=== PATIENT | male | born 1990 | race Hispanic/Latino ===

== ENCOUNTER 2017-12-19 10:57 | Emergency (ER) | payer BC, SELFPAY ==
[2017-12-19] MEDS ORDERED: TETANUS & DIPHTHERIA TOX,ADULT 0.5 ML VIAL ONE (11:17)
[2017-12-19] MEDS ORDERED: MORPHINE 4 MG/ML SYR ONE (11:17)
[2017-12-19] MEDS ORDERED: ONDANSETRON 4 MG (ODT) TAB ONE (11:17)
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
[2017-12-19] MEDS ORDERED: LIDOCAINE 1% W/EPI 1:100,000 MDV 50 ML VIAL ONE (12:05)
[2017-12-19] MEDS ORDERED: DERMABOND SKIN ADHESIVE TOP ONE (12:42)
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
== END 2017-12-19 13:16 | disposition home or self-care (01) ==
LOC: ER 10:57
PROC: 0JQ00ZZ Repair Scalp Subcutaneous Tissue and Fascia, Open Approach (ICD-10-PCS; principal; 2017-12-19)
DX: S01.01XA Laceration without foreign body of scalp, initial encounter (principal); V49.49XA Driver injured in collision with other motor vehicles in traffic accident, initial encounter; Z23 Encounter for immunization
CPT/HCPCS: 70450; 72125; 90714; 96372; 99284

== ENCOUNTER 2023-11-09 15:31 | Emergency (ER) | payer OTHER ==
[2023-11-09] MEDS ORDERED: NA CHLORIDE 0.9% 1,000 ML ONE (16:01)
[2023-11-09] MEDS ORDERED: FAMOTIDINE 20 MG/2 ML VIAL IV ONE (16:01)
[2023-11-09 16:17] LABS: Absolute Eosinophils 0.1 K/uL (0-0.5); Absolute Lymphocytes (CBC) 2.3 K/uL (0.7-4.9); Absolute Monocytes 0.6 K/uL (0.1-1.3); Absolute Neutrophil 3.6 K/uL (1.8-8.0); Basophils % 0.5 % (0-1.3); Eosinophils % 1.8 % (0-4.4); Hematocrit 40.6 % (39.6-49.0); Hemoglobin 13.7 g/dL (13.6-17.9); Lymphocytes % 34.9 % (15.3-44.8); MCH 29.1 pg (27.0-35.0); MCHC 33.8 g/dL (32.0-36.0); MCV 86.2 fL (80-100); MPV 8.8 fL (7.6-11.3); Monocytes % 8.8 % (3.3-12.3); Nucleated Red Blood Cells % 0.1 % (0-0); Platelets 246 thou/uL (152-406); RBC Red Blood Cell Count 4.71 M/uL (4.33-5.43); Red Cell Distribution Width 14.1 % (12.1-15.2)
[2023-11-09 16:33] LABS: Albumin 3.6 g/dL (3.4-5.0); Anion Gap 4.7 mEq/L (5.0-15.0); Bilirubin Total 0.3 mg/dL (0.2-1.0); Globulin 3.5 g/dL (2.3-3.5); Potassium 3.7 mEq/L (3.5-5.1); Protein, Total 7.1 g/dL (6.4-8.2)
--- NOTE | 2023-11-09 17:13 | RAD REPORT ---
EXAM DESCRIPTION: US - Abdomen Exam Limited - 11/09/2023 4:55 pm CLINICAL HISTORY: Abdominal pain. COMPARISON: None. FINDINGS: Multiple small gallstones. Gallbladder wall is not thickened The biliary tree is normal caliber. IMPRESSION: Cholelithiasis without evidence of cholecystitis
[2023-11-09] MEDS ORDERED: KETOROLAC 30 MG/ML INJ ONE (17:58)
--- NOTE | 2023-11-09 17:59 | ER ---
Nurse's Notes [facility] Name: Johny Stephens Age: 33 yrs Sex: Male : 1990 Arrival Date: 11/09/2023 Time: 15:31 Bed 16 Private MD: Diagnosis: Other cholelithiasis without obstruction Presentation: 11/08 15:37 Chief complaint: Patient states: Epigastric pain for 1 day. Wraps around to R side and ll1 back. No fever. Coronavirus screen: Client denies travel out of the [place] in the last 14 days. At this time, the client does not indicate any symptoms associated with coronavirus-19. Ebola Screen: Patient denies travel to an Ebola-affected area in the 21 days before illness onset. Initial Sepsis Screen: Does the patient meet any 2 criteria? No. Patient's initial sepsis screen is negative. Does the patient have a suspected source of infection? No. Patient's initial sepsis screen is negative. Risk Assessment: Do you want to hurt yourself or someone else? Patient reports no desire to harm self or others. Onset of symptoms was November 09, 2023. 15:37 Method Of Arrival: Ambulatory ll1 15:37 Acuity: SHAGGY 3 ll1 Historical: - Allergies: 15:37 No Known Allergies; ll1 - PMHx: 15:37 Hypertensive disorder; ll1 - PSHx: 15:37 Appendectomy; gastric sleeve; ll1 - Immunization history:: Adult Immunizations up to date. - Infectious Disease History:: Denies. - Social history:: Smoking status: Patient denies any tobacco usage or history of. Screenin:03 [facility] ED Fall Risk Assessment (Adult) History of falling in the last 3 months, tl4 including since admission No falls in past 3 months (0 pts) Confusion or Disorientation No (0 pts) Intoxicated or Sedated No (0 pts) Impaired Gait No (0 pts) Mobility Assist Device Used No (0 pt) Altered Elimination No (0 pt) Score/Fall Risk Level 0 - 2 = Low Risk Oriented to surroundings, Maintained a safe environment, Educated pt \T\ family on fall prevention, incl call for assistance when getting out of bed, Assessed \T\ reinforced patient's understanding of fall precautions, Hourly rounding (assess needs \T\ fall precautionary measures) done, Used ambulatory aids as needed (educated on \T\ assisted with), Used gait belt as appropriate. Abuse screen: Denies threats or abuse. Denies injuries from another. Nutritional screening: No deficits noted. Tuberculosis screening: No symptoms or risk factors identified. Assessment: 16:00 General: Appears in no apparent distress. Behavior is calm, cooperative. Pain: tl4 Complains of pain in abdomen. Neuro: Level of Consciousness is awake, alert, obeys commands, Oriented to person, place, time, situation, Moves all extremities. Full function Gait is steady, Speech is normal, Facial symmetry appears normal. Cardiovascular: Capillary refill < 3 seconds Patient's skin is warm and dry. Respiratory: Airway is patent Respiratory effort is even, unlabored, Respiratory pattern is regular, symmetrical, Breath sounds are clear bilaterally. GI: Reports upper abdominal pain. : No signs and/or symptoms were reported regarding the genitourinary system. EENT: No signs and/or symptoms were reported regarding the EENT system. Derm: No signs and/or symptoms reported regarding the dermatologic system. Musculoskeletal: No signs and/or symptoms reported regarding the musculoskeletal system. 17:00 Reassessment: No changes from previously documented assessment. Patient and/or family tl4 updated on plan of care and expected duration. Pain level reassessed. Patient is alert, oriented x 3, equal unlabored respirations, skin warm/dry/pink. 18:10 Reassessment: No changes from previously documented assessment. Patient and/or family tl4 updated on plan of care and expected duration. Pain level reassessed. Patient is alert, oriented x 3, equal unlabored respirations, skin warm/dry/pink. Vital Signs: 15:37 BP 142 / 90; Pulse 51; Resp 17; Temp 98.1; Pulse Ox 99% ; Weight 111.13 kg; Height 5 ll1 ft. 11 in. ; Pain 10/10; 16:00 BP 123 / 76; Pulse 51; Resp 18; Pulse Ox 99% ; tl4 16:30 BP 139 / 87; Pulse 58; Resp 16; Pulse Ox 100% ; tl4 17:00 BP 139 / 82; Pulse 61; Resp 18; Pulse Ox 100% ; tl4 17:30 BP 141 / 89; Pulse 56; Resp 16; Pulse Ox 100% on R/A; tl4 18:23 BP 136 / 90; Pulse 60; Resp 16; Temp 98.1(TE); Pulse Ox 100% on R/A; Pain 6/10; tl4 15:37 Body Mass Index 34.17 (111.13 kg, 180.34 cm) ll1 15:37 Pain Scale: Adult ll1 18:23 Pain Scale: Adult tl4 ED Course: 15:33 Patient arrived in ED. im 15:34 [facility] kb 15:34 Nico Glynn MD is Attending Physician. kb 15:39 Triage completed. ll1 15:48 Rogelio Ovalle, PETAR is Primary Nurse. tl4 16:04 CBC with Diff Sent. tl4 16:04 CMP Sent. tl4 16:04 Lipase Sent. tl4 16:05 No provider procedures requiring assistance completed. Initial lab(s) drawn, by me, tl4 sent to lab. Inserted saline lock: 22 gauge in left antecubital area, using aseptic technique. Blood collected. 16:57 Abdomen Limited US In Process Unspecified. EDMS 18:03 Patient has correct armband on for positive identification. Placed in gown. Bed in low tl4 position. Call light in reach. Side rails up X 1. Adult w/ patient. Provided Education on: ED process, call moe. Client placed on continuous cardiac and pulse oximetry monitoring. NIBP monitoring applied. Door closed. Noise minimized. Lights dimmed. Moved to private room. Warm blanket given. Pillow given. 18:04 Arm band placed on right wrist. tl4 18:16 IV discontinued, intact, bleeding controlled, No redness/swelling at site. Pressure tl4 dressing applied. Administered Medications: 16:04 Drug: NS 0.9% IV 1000 ml IV at 1 bolus Per protocol; 1000 mL bolus Route: IV; Rate: 1 tl4 bolus; Site: left antecubital; Delivery: Primary tubing; 17:57 Follow up: Response: No adverse reaction; IV Status: Completed infusion; IV Intake: tl4 1000ml 16:04 Drug: Famotidine IVP 20 mg IVP once; dilute with 10 mL 0.9% NaCl; give over 2 minutes tl4 Route: IVP; Infused Over: 2 mins; Site: left antecubital; 17:57 Follow up: Response: No adverse reaction tl4 18:02 Drug: Ketorolac IVP 15 mg IVP once Route: IVP; Site: left antecubital; tl4 18:16 Follow up: Response: No adverse reaction tl4 Medication: 18:03 VIS not applicable for this client. tl4 Intake: 17:57 IV: 1000ml; Total: 1000ml. tl4 Outcome: 17:58 Discharge ordered by MD. monroy 18:17 Discharged to home ambulatory, with family, tl4 18:17 Condition: good 18:17 Discharge instructions given to patient, Instructed on discharge instructions, follow up and referral plans. Demonstrated understanding of instructions, follow-up care, 18:23 Patient left the ED. tl4 Signatures: Dispatcher [employer] EDAstrid Gutiérrez, MIIHR BONILLA-Nael Paul, RN RN ll1 Lacie Sterling Toni, RN RN tl4
--- NOTE | 2023-11-09 17:59 | EDPHYS ---
Physician Documentation [facility] Name: Johny Stephens Age: 33 yrs Sex: Male : 1990 Arrival Date: 11/09/2023 Time: 15:31 Bed 16 Private MD: ED Physician Nico Glynn HPI: 11/08 15:38 This 33 yrs old Male presents to ER via Unassigned with complaints of Flank kb Pain, Back Pain - middle back. 15:39 Pt is a 33 year old male who presents for epigastric pain that radiates to RUQ and kb around to back. States pain began this morning. Denies n/v/d, fever. Pt has never had this pain before. Denies aggravating or alleviating factore. Historical: - Allergies: 15:37 No Known Allergies; ll1 - PMHx: 15:37 Hypertensive disorder; ll1 - PSHx: 15:37 Appendectomy; gastric sleeve; ll1 - Immunization history:: Adult Immunizations up to date. - Infectious Disease History:: Denies. - Social history:: Smoking status: Patient denies any tobacco usage or history of. ROS: 15:38 Constitutional: As per HPI kb Exam: 15:38 Constitutional: This is a well developed, well nourished patient who is awake, alert, kb and in no acute distress. Head/Face: Normocephalic, atraumatic. ENT: Moist Mucous membranes Cardiovascular: Regular rate Respiratory: Respirations even and unlabored. No increased work of breathing. Talking in full sentences Skin: Warm, dry with normal turgor. Normal color. MS/ Extremity: Pulses equal, no cyanosis. Neurovascular intact. Full, normal range of motion. Neuro: Awake and alert, GCS 15, oriented to person, place, time, and situation. Moves all extremities. Normal gait. 15:38 Abdomen/GI: Inspection: abdomen appears normal, Bowel sounds: normal, Palpation: soft, in all quadrants, mild abdominal tenderness, in the epigastric area and right upper quadrant, Vital Signs: 15:37 BP 142 / 90; Pulse 51; Resp 17; Temp 98.1; Pulse Ox 99% ; Weight 111.13 kg; Height 5 ll1 ft. 11 in. ; Pain 10/10; 16:00 BP 123 / 76; Pulse 51; Resp 18; Pulse Ox 99% ; tl4 16:30 BP 139 / 87; Pulse 58; Resp 16; Pulse Ox 100% ; tl4 17:00 BP 139 / 82; Pulse 61; Resp 18; Pulse Ox 100% ; tl4 17:30 BP 141 / 89; Pulse 56; Resp 16; Pulse Ox 100% on R/A; tl4 18:23 BP 136 / 90; Pulse 60; Resp 16; Temp 98.1(TE); Pulse Ox 100% on R/A; Pain 6/10; tl4 15:37 Body Mass Index 34.17 (111.13 kg, 180.34 cm) ll1 15:37 Pain Scale: Adult ll1 18:23 Pain Scale: Adult tl4 MDM: 15:34 Patient medically screened. kb 15:39 Differential diagnosis: cholecystitis, Cholelithiasis, gastroesophageal reflux disease, kb non-specific abd pain, pancreatitis. Data reviewed: vital signs, nurses notes. 17:58 Counseling: I had a detailed discussion with the patient and/or guardian regarding the kb historical points, exam findings, and any diagnostic results supporting the discharge/admit diagnosis, lab results, radiology results, the need for outpatient follow up, a general surgeon, to return to the emergency department if symptoms worsen or persist or if there are any questions or concerns that arise at home. 05 15:38 Order name: CBC with Diff; Complete Time: 16:27 kb 11/08 15:38 Order name: CMP; Complete Time: 16:36 kb 11/08 15:38 Order name: Lipase; Complete Time: 16:36 kb 11/08 15:38 Order name: Abdomen Limited US; Complete Time: 17:14 kb 11/08 15:38 Order name: IV Saline Lock; Complete Time: 16:04 kb 11/08 15:38 Order name: Labs collected and sent; Complete Time: 16:04 kb Administered Medications: 16:04 Drug: NS 0.9% IV 1000 ml IV at 1 bolus Per protocol; 1000 mL bolus Route: IV; Rate: 1 tl4 bolus; Site: left antecubital; Delivery: Primary tubing; 17:57 Follow up: Response: No adverse reaction; IV Status: Completed infusion; IV Intake: tl4 1000ml 16:04 Drug: Famotidine IVP 20 mg IVP once; dilute with 10 mL 0.9% NaCl; give over 2 minutes tl4 Route: IVP; Infused Over: 2 mins; Site: left antecubital; 17:57 Follow up: Response: No adverse reaction tl4 18:02 Drug: Ketorolac IVP 15 mg IVP once Route: IVP; Site: left antecubital; tl4 18:16 Follow up: Response: No adverse reaction tl4 Disposition Summary: 11/09/23 17:58 Discharge Ordered Notes: Location: Home kb Condition: Stable kb Diagnosis - Other cholelithiasis without obstruction kb Followup: kb - With: Emergency Department - When: As needed - Reason: Worsening of condition Followup: kb - With: Private Physician - When: 2 - 3 days - Reason: Recheck today's complaints, Continuance of care, Re-evaluation by your physician Discharge Instructions: - Discharge Summary Sheet kb - Cholelithiasis, [id number] kb Forms: - Medication Reconciliation Form kb - Antibiotic Education kb - Prescription Opioid Use kb - Patient Portal Instructions kb - Leadership Thank You Letter kb Signatures: Dispatcher [employer] Astrid Conklin, IRENE-C [employer]IVER-Nael Paul, RN RN ll1 Rogelio Ovalle RN RN tl4
[2023-11-09 18:41] VITALS: BP 136/90; TEMP 98.1; O2SAT 100
== END 2023-11-09 18:23 | disposition home or self-care (01) ==
LOC: ER 15:31
DX: K80.80 Other cholelithiasis without obstruction (principal)
CPT/HCPCS: 85025; 36415; 83690; 80053; 76705; J7030

== ENCOUNTER 2024-04-07 04:29 | Inpatient (IN) | payer SELFPAY ==
[2024-04-07] MEDS ORDERED: KETOROLAC 30 MG/ML INJ ONE (04:52)
[2024-04-07] MEDS ORDERED: ONDANSETRON 4 MG/2 ML VIAL ONE (04:52)
[2024-04-07] MEDS ORDERED: MORPHINE 4 MG/ML SYR ONE (04:52)
[2024-04-07 04:53] LABS: Absolute Basophils 0.1 K/uL (0-0.5); Absolute Eosinophils 0.2 K/uL (0-0.5); Absolute Lymphocytes (CBC) 3.4 K/uL (0.7-4.9); Absolute Monocytes 0.8 K/uL (0.1-1.3); Basophils % 0.6 % (0-1.3); Eosinophils % 1.8 % (0-4.4); Hematocrit 41.1 % (39.6-49.0); Hemoglobin 13.8 g/dL (13.6-17.9); Lymphocytes % 40.6 % (15.3-44.8); MCH 29.7 pg (27.0-35.0); MCHC 33.7 g/dL (32.0-36.0); MCV 88.1 fL (80-100); MPV 8.4 fL (7.6-11.3); Monocytes % 9.6 % (3.3-12.3); Neutrophils % 47.4 % (41.7-73.7); Nucleated Red Blood Cells % 0.1 % (0-0); Platelets 280 thou/uL (152-406); RBC Red Blood Cell Count 4.66 M/uL (4.33-5.43); Red Cell Distribution Width 14.3 % (12.1-15.2)
[2024-04-07] MEDS ORDERED: FAMOTIDINE 20 MG/2 ML VIAL IV ONE (04:53)
[2024-04-07] MEDS ORDERED: MORPHINE 2 MG/ML SYR ONE (04:53)
[2024-04-07] MEDS ORDERED: NA CHLORIDE 0.9% 2,000 ML ONE (04:53)
[2024-04-07 05:18] LABS: Albumin 3.8 g/dL (3.4-5.0); Albumin/Globulin Ratio 1.1 (1.1-1.8); Anion Gap 7.3 mEq/L (5.0-15.0); Bilirubin Total 0.2 mg/dL (0.2-1.0); Globulin 3.5 g/dL (2.3-3.5); Potassium 3.3 mEq/L (3.5-5.1); Protein, Total 7.3 g/dL (6.4-8.2)
--- NOTE | 2024-04-07 06:55 | RAD REPORT ---
EXAM DESCRIPTION: Abdomen Pelvis W Contrast RadLex: CT ABDOMEN PELVIS WITH IV CONTRAST CLINICAL HISTORY: 33 years Male; ABD PAIN; IV ONLY Bed Name: 6 TECHNIQUE: CT of the abdomen and pelvis [with] intravenous contrast. All CT scans at this facility use dose modulation, iterative reconstruction, and/or weight based dosi ng when appropriate to reduce radiation dose to as low as reasonably achievable. COMPARISON: None. FINDINGS: Lower thorax: Bibasilar atelectasis. Abdomen: Stomach: Sleeve gastrectomy changes. Liver: No focal lesions. No intrahepatic ductal distention. Gallbladder: Moderately distended with wall thickening. Pancreas: Within normal limits Spleen: Within normal limits Right kidney: No hydronephrosis. 2 mm renal stone. Left kidney: No hydronephrosis. No focal lesion. Adrenal glands: Within normal limits Vascular structures: Within normal limits Nodes: No lymphadenopathy by size criteria Pelvis: Small bowel: No significant distention. Appendix: Not visualized. Colon: No distention or acute pericolonic edema. Peritoneum: No free intraperitoneal fluid or air. Bones: No acute bone findings. Bladder: Unremarkable. Reproductive organs: No acute findings. IMPRESSION: 1. Moderately distended gallbladder with wall thickening, can be seen in setting of acute cholecyst itis. Recommend dedicated ultrasound for further evaluation. 2. Right-sided nephrolithiasis. No hydronephrosis. Electronically signed by: Evelia Olivia MD 04/07/2024 06:51 AM CDT RP Z9 Due to temporary technical issues with the [employer] reporting system, reports are being nia d by the in-house radiologist without review as a courtesy to ensure prompt reporting the interpreting radiologist is fully responsible for the content of the report. Transcribed Date/Time: 04/07/2024 9:52 PM
[2024-04-07] MEDS ORDERED: NA CHLORIDE 0.9% 100 ML ONE (07:24)
[2024-04-07] MEDS ORDERED: PIPERACIL/TAZO 3.375 GM VIAL IV ONE (07:24)
--- NOTE | 2024-04-07 07:26 | EDPHYS ---
Physician Documentation [facility] Name: Johny Stephens Age: 33 yrs Sex: Male : 1990 Arrival Date: 04/07/2024 Time: 04:29 Bed 6 Private MD: ED Physician Donavon Tucker HPI: 04/07 04:34 This 33 yrs old Male presents to ER via Unassigned with complaints of sp4 Abdominal Pain, Abdominal Cramping. 07:21 33-year-old male with history of gallbladder disease presents with acute right upper sp4 quadrant abdominal pain. Historical: - Allergies: 04:47 No Known Allergies; ha1 - PMHx: 04:47 Hypertensive disorder; ha1 - PSHx: 04:47 Appendectomy; gastric sleeve; ha1 - Immunization history:: Adult Immunizations up to date. - Infectious Disease History:: Denies. - Social history:: Smoking status: Patient denies any tobacco usage or history of. - Family history:: not pertinent. ROS: 07:22 Constitutional: Negative for fever, chills, and weight loss, positive right upper sp4 quadrant pain Eyes: Negative for injury, pain, redness, and discharge, ENT: Negative for injury, pain, and discharge, 07:22 All other systems are negative, Exam: 07:22 Constitutional: This is a well developed, well nourished patient who is awake, alert, sp4 and in no acute distress. Head/Face: Normocephalic, atraumatic. Eyes: Pupils equal round and reactive to light, extra-ocular motions intact. Lids and lashes normal. Conjunctiva and sclera are not injected. Cornea within normal limits. Periorbital areas with no swelling, redness, or edema. ENT: Nares patent. No nasal discharge, no septal abnormalities noted. Tympanic membranes are normal and external auditory canals are clear. Oropharynx with no redness, swelling, or masses, exudates, or evidence of obstruction, uvula midline. Mucous membranes moist. Neck: Trachea midline, no thyromegaly or masses palpated, and no cervical lymphadenopathy. Supple, full range of motion without nuchal rigidity, or vertebral point tenderness. Chest/axilla: Normal chest wall appearance and motion. Nontender with no deformity. No lesions are appreciated. Cardiovascular: Regular rate and rhythm with a normal S1 and S2. No gallops, murmurs, or rubs. Normal PMI, no JVD. No pulse deficits. Respiratory: Lungs have equal breath sounds bilaterally, clear to auscultation and percussion. No rales, rhonchi or wheezes noted. No increased work of breathing, no retractions or nasal flaring. Abdomen/GI: Soft, with normal bowel sounds. No distension or tympany. Positive right upper quadrant abdominal pain tenderness Back: No spinal tenderness. No costovertebral tenderness. Skin: Warm, dry with normal turgor. Normal color with no rashes, no lesions, and no evidence of cellulitis. MS/ Extremity: Pulses equal, no cyanosis. Neurovascular intact. Full, normal range of motion. Neuro: Awake and alert, GCS 15, oriented to person, place, time, and situation. Cranial nerves II-XII grossly intact. Motor strength 5/5 in all extremities. Sensory grossly intact. Psych: Awake, alert, with orientation to person, place and time. Behavior, mood, and affect are within normal limits Vital Signs: 04:32 BP 184 / 107; Pulse 63; Resp 19 S; Temp 98.6(O); Pulse Ox 100% on R/A; Weight 106.59 ha1 kg; Height 5 ft. 11 in. ; Pain 10/10; 05:30 BP 143 / 96; Pulse 48; Resp 16; Pulse Ox 99% ; Pain 8/10; dd2 06:00 BP 136 / 87; Pulse 45; Resp 16; Pulse Ox 99% ; vc1 06:41 BP 126 / 79; Pulse 49; Resp 16; Pulse Ox 100% ; vc1 07:30 BP 118 / 81; Pulse 67; Resp 16; Pulse Ox 100% on R/A; mb9 04:32 Body Mass Index 32.78 (106.59 kg, 180.34 cm) ha1 04:32 Pain Scale: Adult ha1 05:30 Pain Scale: Adult dd2 Sonali Coma Score: 05:30 Eye Response: spontaneous(4). Motor Response: obeys commands(6). Verbal Response: dd2 oriented(5). Total: 15. 07:22 Eye Response: spontaneous(4). Motor Response: obeys commands(6). Verbal Response: sp4 oriented(5). Total: 15. MDM: 07:00 Patient medically screened. sp4 07:15 ED course: 33 years Male; ABD PAIN; IV ONLYBed Name: 6 TECHNIQUE: CT of the abdomen and sp4 pelvis [with] intravenous contrast. All CT scans at this facility use dose modulation, iterative reconstruction, and/or weight based dosing when appropriate to reduce radiation dose to as low as reasonably achievable. COMPARISON: None. FINDINGS: Lower thorax: Bibasilar atelectasis. Abdomen: Stomach: Sleeve gastrectomy changes. Liver:No focal lesions. No intrahepatic ductal distention. Gallbladder:Moderately distended with wall thickening. Pancreas:Within normal limits Spleen:Within normal limits Right kidney:No hydronephrosis. 2 mm renal stone. Left kidney:No hydronephrosis. No focal lesion. Adrenal glands:Within normal limits Vascular structures:Within normal limits Nodes:No lymphadenopathy by size criteria Pelvis: Small bowel:No significant distention. Appendix:Not visualized. Colon:No distention or acute pericolonic edema. Peritoneum: No free intraperitoneal fluid or air. Bones: No acute bone findings. Bladder: Unremarkable. Reproductive organs: No acute findings. IMPRESSION: 1. Moderately distended gallbladder with wall thickening, can be seen in setting of acute cholecystitis. Recommend dedicated ultrasound for further evaluation. 2. Right-sided nephrolithiasis. No hydronephrosis.. 07:21 ED course: Prior Ultrasound EXAM DESCRIPTION: US - Abdomen Exam Limited - 11/09/2023 sp4 4:55 pm CLINICAL HISTORY: Abdominal pain. COMPARISON: None. FINDINGS: Multiple small gallstones. Gallbladder wall is not thickened The biliary tree is normal caliber. IMPRESSION: Cholelithiasis without evidence of cholecystitis. 07:22 Differential diagnosis: Cholelithiasis, cholecystitis, hepatitis. Data reviewed: vital sp4 signs, nurses notes, old medical records, lab test result(s), radiologic studies, CT scan, ultrasound. Consideration of Admission/Observation Patient was admitted/placed on observation. Escalation of care including admission/observation considered. Management of patient was discussed with the following: Hospitalist: Admit Team . Axle Polisher: Bibiana LYLE . ED course: Patient stable for admission with General Surgery Consult . 04/07 04:35 Order name: CBC with Diff; Complete Time: 07:15 sp4 04/07 04:35 Order name: CMP; Complete Time: 07:15 sp4 04/07 04:35 Order name: Lipase; Complete Time: 07:15 sp4 04/07 04:35 Order name: Urinalysis w/ reflexes sp4 04/07 08:03 Order name: CBC with Automated Diff EDMS 04/07 08:03 Order name: CBC with Automated Diff EDMS 04/07 08:03 Order name: Comprehensive Metabolic Panel EDMS 04/07 08:03 Order name: Comprehensive Metabolic Panel EDMS 04/07 08:03 Order name: Lipid Profile EDMS 04/07 08:03 Order name: Lipid Profile EDMS 04/07 08:03 Order name: Magnesium EDMS 04/07 08:03 Order name: Magnesium EDMS 04/07 04:46 Order name: CT Abd/Pelvis - IV Contrast Only sp4 04/07 04:46 Order name: US Abdomen Limited sp4 04/07 08:03 Order name: CONS Physician Consult EDMS 04/07 04:35 Order name: IV Saline Lock; Complete Time: 05:04 sp4 04/07 04:35 Order name: Labs collected and sent; Complete Time: 05:04 sp4 04/07 04:46 Order name: NPO; Complete Time: 05:03 sp4 04/07 07:17 Order name: NPO; Complete Time: 07:19 sp4 Administered Medications: 04:53 Drug: Famotidine IVP 20 mg IVP once; dilute with 10 mL 0.9% NaCl; give over 2 minutes ha1 Route: IVP; Site: right antecubital; 05:08 Follow up: Response: No adverse reaction dd2 04:55 Drug: NS 0.9% IV 1000 ml IV at 1 bolus Per protocol; to be given as a bolus over 60 ha1 minutes Route: IV; Rate: 1 bolus; Site: right antecubital; 05:10 Follow up: Response: No adverse reaction dd2 05:58 Follow up: Response: No adverse reaction; IV Status: Completed infusion; IV Intake: dd2 1000ml 04:57 Drug: TORadol - Ketorolac IVP 30 mg IVP once Route: IVP; Site: right antecubital; ha1 05:12 Follow up: Response: No adverse reaction dd2 04:57 Drug: Ondansetron IVP 4 mg IVP once; over 2 minutes Route: IVP; Site: right antecubital;ha1 05:12 Follow up: Response: No adverse reaction dd2 05:03 Drug: morphine IVP or IV 6 mg IVP once over 4 mins Route: IVP; Infused Over: 4 mins; ha1 Site: right antecubital; 05:18 Follow up: Response: No adverse reaction dd2 06:50 Drug: NS 0.9% IV 1000 ml IV at 125 ml/hr continuous Route: IV; Rate: 125 ml/hr; Site: dd2 right antecubital; 07:31 Follow up: Response: No adverse reaction; IV Status: Infusion continued upon admission mb9 07:30 Drug: Piperacillin-Tazobactam IVPB 3.375 grams IVPB once over 60 mins; (mix in NS 100 mb9 mL) Route: IVPB; Infused Over: 60 mins; Site: right antecubital; 07:58 Follow up: Response: No adverse reaction; IV Status: Completed infusion mb9 Disposition Summary: 04/07/24 07:25 Hospitalization Ordered Notes: Hospitalization Status: Observation sp4 Provider: Flex Moffett sp4 Location: Telemetry/MedSur (observation) sp4 Condition: Stable sp4 Problem: new sp4 Symptoms: have improved sp4 Bed/Room Type: Standard sp4 Room Assignment: 406(04/07/24 08:29) eb Diagnosis - Cholecystitis, unspecified sp4 - Acute calculus cholecystitis sp4 Forms: - Medication Reconciliation Form sp4 - SBAR form sp4 - Leadership Thank You Letter sp4 Signatures: Dispatcher [employer] EDShaila Block Heidy, RN RN ha1 Silvia Botello RN RN mb9 Donavon Tucker MD MD sp4 LUIS DAWKINS RN RN dd2 Corrections: (The following items were deleted from the chart) 04:47 04:47 Abdomen Limited+[id number] ordered. EDMS EDMS 08:20 07:25 sp4 eb 08:29 08:20 401 eb eb
--- NOTE | 2024-04-07 07:26 | ER ---
Nurse's Notes [facility] Name: Johny Stephens Age: 33 yrs Sex: Male : 1990 Arrival Date: 04/07/2024 Time: 04:29 Bed 6 Private MD: Diagnosis: Cholecystitis, unspecified;Acute calculus cholecystitis Presentation: 04/07 04:32 Chief complaint: Patient states: NAUSEA AND VOMITING PAIN AT RIGHT UPPER QUADRANT. 1 04:32 Coronavirus screen: Vaccine status: Patient reports receiving the 2nd dose of the covid ha1 vaccine. [employer]. Ebola Screen: No symptoms or risks identified at this time. Initial Sepsis Screen: Does the patient meet any 2 criteria? No. Patient's initial sepsis screen is negative. Does the patient have a suspected source of infection? No. Patient's initial sepsis screen is negative. Risk Assessment: Do you want to hurt yourself or someone else? Patient reports no desire to harm self or others. Onset of symptoms was April 07, 2024. 04:32 Method Of Arrival: Ambulatory [facility] 04:32 Acuity: SHAGGY 3 ha1 Triage Assessment: 04:42 General: Appears uncomfortable, Behavior is cooperative. Pain: Complains of pain in ha1 right upper quadrant Pain does not radiate. Pain currently is 10 out of 10 on a pain scale. Quality of pain is described as sharp, Pain began suddenly. Neuro: Level of Consciousness is awake, alert, obeys commands, Oriented to person, place, time, situation. Cardiovascular: Capillary refill < 3 seconds Patient's skin is warm and dry. Respiratory: Airway is patent Respiratory effort is even, unlabored, Respiratory pattern is regular, symmetrical. GI: Abdomen is round non-distended, Reports upper abdominal pain, nausea, vomiting. Historical: - Allergies: 04:47 No Known Allergies; ha1 - PMHx: 04:47 Hypertensive disorder; ha1 - PSHx: 04:47 Appendectomy; gastric sleeve; ha1 - Immunization history:: Adult Immunizations up to date. - Infectious Disease History:: Denies. - Social history:: Smoking status: Patient denies any tobacco usage or history of. - Family history:: not pertinent. Screenin:48 [facility] ED Fall Risk Assessment (Adult) History of falling in the last 3 months, ha1 including since admission No falls in past 3 months (0 pts) Confusion or Disorientation No (0 pts) Intoxicated or Sedated No (0 pts) Impaired Gait No (0 pts) Mobility Assist Device Used No (0 pt) Altered Elimination No (0 pt) Score/Fall Risk Level 0 - 2 = Low Risk Oriented to surroundings, Maintained a safe environment, Educated pt \T\ family on fall prevention, incl call for assistance when getting out of bed, Hourly rounding (assess needs \T\ fall precautionary measures) done. Abuse screen: Denies threats or abuse. Denies injuries from another. Nutritional screening: No deficits noted. Tuberculosis screening: No symptoms or risk factors identified. Assessment: 05:30 General: Appears uncomfortable, Behavior is calm, cooperative, appropriate for age. dd2 Pain: Complains of pain in right upper quadrant Pain currently is 10 out of 10 on a pain scale. Pain began suddenly. Neuro: Level of Consciousness is awake, alert, obeys commands, Oriented to person, place, time, situation, Appropriate for age. Cardiovascular: Patient's skin is warm and dry. Respiratory: Airway is patent Respiratory effort is even, unlabored, Respiratory pattern is regular, symmetrical. GI: Abdomen is non-distended, Bowel sounds present X 4 quads. Abdomen is tender to palpation in right upper quadrant Reports upper abdominal pain, nausea, vomiting. : No signs and/or symptoms were reported regarding the genitourinary system. EENT: No deficits noted. No signs and/or symptoms were reported regarding the EENT system. Derm: No deficits noted. No signs and/or symptoms reported regarding the dermatologic system. Musculoskeletal: No deficits noted. No signs and/or symptoms reported regarding the musculoskeletal system. 06:47 Reassessment: Patient appears in no apparent distress at this time. No changes from vc1 previously documented assessment. Patient and/or family updated on plan of care and expected duration. Pain level reassessed. 07:30 Reassessment: Patient appears in no apparent distress at this time. No changes from mb9 previously documented assessment. Patient and/or family updated on plan of care and expected duration. Pain level reassessed. Patient is alert, oriented x 3, equal unlabored respirations, skin warm/dry/pink. Patient denies pain at this time. Patient states symptoms have improved. Vital Signs: 04:32 BP 184 / 107; Pulse 63; Resp 19 S; Temp 98.6(O); Pulse Ox 100% on R/A; Weight 106.59 ha1 kg; Height 5 ft. 11 in. ; Pain 10/10; 05:30 BP 143 / 96; Pulse 48; Resp 16; Pulse Ox 99% ; Pain 8/10; dd2 06:00 BP 136 / 87; Pulse 45; Resp 16; Pulse Ox 99% ; vc1 06:41 BP 126 / 79; Pulse 49; Resp 16; Pulse Ox 100% ; vc1 07:30 BP 118 / 81; Pulse 67; Resp 16; Pulse Ox 100% on R/A; mb9 04:32 Body Mass Index 32.78 (106.59 kg, 180.34 cm) ha1 04:32 Pain Scale: Adult ha1 05:30 Pain Scale: Adult dd2 [place] Coma Score: 05:30 Eye Response: spontaneous(4). Motor Response: obeys commands(6). Verbal Response: dd2 oriented(5). Total: 15. 07:22 Eye Response: spontaneous(4). Motor Response: obeys commands(6). Verbal Response: sp4 oriented(5). Total: 15. ED Course: 04:31 Patient arrived in ED. jj6 04:32 Patient has correct armband on for positive identification. Placed in gown. Bed in low ha1 position. Call light in reach. Side rails up X 1. Adult w/ patient. 04:34 Donavon Tucker MD is Attending Physician. sp4 04:44 LUIS DAWKINS, PETAR is Primary Nurse. dd2 04:44 Initial lab(s) drawn, by me, sent to lab. Inserted saline lock: 20 gauge in right dd2 antecubital area, using aseptic technique. Blood collected. Flushed with 10 mL NS. 04:47 Triage completed. ha1 05:04 CMP Sent. ha1 05:04 Lipase Sent. ha1 05:30 No provider procedures requiring assistance completed. dd2 05:30 Client placed on continuous cardiac and pulse oximetry monitoring. NIBP monitoring dd2 applied. Door closed. Noise minimized. Pillow given. Verbal reassurance given. 05:30 Arm band placed on right wrist. vc1 05:54 US Abdomen Limited In Process Unspecified. EDMS 06:18 CT Abd/Pelvis - IV Contrast Only In Process Unspecified. EDMS 07:19 Primary Nurse role handed off by LUIS DAWKINS, PETAR mb9 07:19 Silvia Botello RN is Primary Nurse. mb9 07:24 Flex Moffett MD is Hospitalizing Provider. sp4 09:17 Patient admitted, IV remains in place. mb9 Administered Medications: 04:53 Drug: Famotidine IVP 20 mg IVP once; dilute with 10 mL 0.9% NaCl; give over 2 minutes ha1 Route: IVP; Site: right antecubital; 05:08 Follow up: Response: No adverse reaction dd2 04:55 Drug: NS 0.9% IV 1000 ml IV at 1 bolus Per protocol; to be given as a bolus over 60 ha1 minutes Route: IV; Rate: 1 bolus; Site: right antecubital; 05:10 Follow up: Response: No adverse reaction dd2 05:58 Follow up: Response: No adverse reaction; IV Status: Completed infusion; IV Intake: dd2 1000ml 04:57 Drug: TORadol - Ketorolac IVP 30 mg IVP once Route: IVP; Site: right antecubital; ha1 05:12 Follow up: Response: No adverse reaction dd2 04:57 Drug: Ondansetron IVP 4 mg IVP once; over 2 minutes Route: IVP; Site: right antecubital;ha1 05:12 Follow up: Response: No adverse reaction dd2 05:03 Drug: morphine IVP or IV 6 mg IVP once over 4 mins Route: IVP; Infused Over: 4 mins; ha1 Site: right antecubital; 05:18 Follow up: Response: No adverse reaction dd2 06:50 Drug: NS 0.9% IV 1000 ml IV at 125 ml/hr continuous Route: IV; Rate: 125 ml/hr; Site: dd2 right antecubital; 07:31 Follow up: Response: No adverse reaction; IV Status: Infusion continued upon admission mb9 07:30 Drug: Piperacillin-Tazobactam IVPB 3.375 grams IVPB once over 60 mins; (mix in NS 100 mb9 mL) Route: IVPB; Infused Over: 60 mins; Site: right antecubital; 07:58 Follow up: Response: No adverse reaction; IV Status: Completed infusion mb9 Medication: 05:30 VIS not applicable for this client. dd2 Intake: 05:58 IV: 1000ml; Total: 1000ml. dd2 Outcome: 07:25 Decision to Hospitalize by Provider. cassy 09:17 Admitted to Tele accompanied by tech, via wheelchair, sally 09:17 Condition: stable 09:17 Instructed on the need for admit, 09:18 Patient left the ED. mb9 Signatures: Dispatcher [employer] EDMS Ann-Marie Arndt jj6 Yuliya Terry RN RN vc1 Estella Caputo RN RN ha1 Ayan, Silvia Swartz RN RN mb9 Donavon Tucker MD MD sp4 LUIS DAWKINS RN RN dd2
[2024-04-07] MEDS: NA CHLORIDE 0.9% 1,000 ML IV SCH (08:00)
[2024-04-07 08:09] LABS: Specific Gravity > 1.030 (1.005-1.030); Urine Bilirubin NEGATIVE (Negative); Urine Blood Negative (Negative); Urine Clarity Clear (Clear); Urine Color Colorless (Yellow); Urine Glucose NEGATIVE (Negative); Urine Ketones NEGATIVE (Negative); Urine Microscopic Reflex YN NO UMIC; Urine Nitrite NEGATIVE (Negative); Urine Protein NEGATIVE (Negative); Urine Urobilinogen Normal (Normal); Urine pH 7.5 (5.0-7.0)
--- NOTE | 2024-04-07 08:10 | P.HP ---
Certification for Inpatient Patient admitted to: Observation With expected LOS: <2 Midnights Patient will require the following post-hospital care: None Practitioner: I am a practitioner with admitting privileges, knowledge of patient current condition, hospital course, and medical plan of care. Services: Services provided to patient in accordance with Admission requirements found in Title 42 Section 412.3 of the Code of Federal Regulations Patient History Date of Service: 04/07/24 Reason for admission: Acute cholecystitis History of Present Illness: Mr. Stephens is a 33-year-old male with a past medical history of hypertension, appendectomy, and gastric sleeve who presented to the emergency department after sudden onset of right upper quadrant abdominal pain, nausea, and vomiting at 0300 this morning. Mr. Stephens has had episodes of the same pain in the past year but has tried to change his diet to forego surgery. In the emergency department he was given IV fluids, pain medication, nausea medication, and antibiotics and Dr. Mccarty was consulted. The patient is n.p.o. at this time since before midnight. Labs: Unremarkable Imaging: IMPRESSION: 1. Moderately distended gallbladder with wall thickening, can be seen in setting of acute cholecystitis. Recommend dedicated ultrasound for further evaluation. 2. Right-sided nephrolithiasis. No hydronephrosis. Abdomen limited ultrasound report pending Allergies No Known Allergies Allergy (Unverified 04/06/13 23:05) Home medications list reviewed: Yes (Amlodipine) Home Medications: Ciprofloxacin HCl [Cipro*] 500 mg PO BID #20 tab 04/07/13 Hydrocodone 7.5/APAP 325 [[place] 7.5/325 mg*] 1 tab PO Q4HP PRN #40 tab 04/07/13 - Past Medical/Surgical History Has patient received pneumonia vaccine in the past: No Diabetic: No -: asthma -: Hypertension -: Gastric sleeve -: Appendectomy Psychosocial/ Personal History: Lives at home with his - Family History Mother -: Diabetes Father -: Diabetes - Social History Smoking Status: Never smoker Alcohol use: Yes CD- Drugs: No Caffeine use: Yes Place of Residence: Home Review of Systems 10-point ROS is otherwise unremarkable General: Unremarkable Eyes: Unremarkable ENT: Unremarkable Respiratory: Unremarkable Cardiovascular: Unremarkable Gastrointestinal: Nausea, Vomiting, Abdominal Pain Genitourinary: Unremarkable Musculoskeletal: Unremarkable Integumentary: Unremarkable Neurological: Unremarkable Lymphatics: Unremarkable Physical Examination - Vital Signs Blood Pressure: 118/81 Pulse: 65 Respirations: 20 Pulse Ox (%): 100 - Physical Exam General: Alert, In no apparent distress, Oriented x3 HEENT: Atraumatic, Normocephalic Neck: Supple Respiratory: Clear to auscultation bilaterally, Normal air movement Cardiovascular: Regular rate/rhythm, Normal S1 S2 Capillary refill: <2 Seconds Gastrointestinal: Hypoactive, Tenderness (Right upper quadrant) Musculoskeletal: No clubbing, No swelling Integumentary: No rashes Neurological: Normal speech, Normal tone, Normal affect Lymphatics: No axilla or inguinal lymphadenopathy External genitalia: Deferred Rectal: Deferred - Studies Laboratory Data (last 24 hrs) 04/07/24 04/07/24 04:52 04:45 WBC 8.50 Hgb 13.8 Hct 41.1 Plt Count 280 Sodium 142 Potassium 3.3 L BUN 11 Creatinine 0.98 Glucose 119 H Total Bilirubin 0.2 AST 17 ALT 26 Alkaline Phosphatase 80 Lipase 46 Assessment and Plan - Plan Acute cholecystitis N.p.o. IVF Zosyn 3.375 g every 8 Pain control Nausea Consult Dr. Mccarty - done Turn cough and deep breathe acute to Incentive spirometer Teds Hypertension Restart amlodipine 10 mg p.o. daily tomorrow VTE/GI prophylaxis - Advance Directives Does patient have a Living Will: No Does patient have a Durable POA for Healthcare: No - Code Status/Comfort Care Code Status Assessed: Yes (Full)
[2024-04-07] MEDS ORDERED: SODIUM CHLORIDE 0.9% 10ML INJ IV PRN (08:16)
--- NOTE | 2024-04-07 08:27 | RAD REPORT ---
EXAM: Right upper quadrant ultrasound. CLINICAL HISTORY: ABD PAIN COMPARISON: 11/09/2023 FINDINGS: Gallbladder: Small calculi are present. No wall thickening or pericholecystic fluid. Bile ducts: No intrahepatic or extrahepatic biliary dilatation. Common bile duct measures 5 mm. Limited imaging of the liver shows no concerning finding. IMPRESSION: Cholelithiasis without acute cholecystitis findings.
[2024-04-07] MEDS: PANTOPRAZOLE 40 MG INJ IVP SCH (09:00)
[2024-04-07] MEDS ORDERED: ROCURONIUM 50 MG/5 ML VIAL IV ONE (10:18)
[2024-04-07] MEDS ORDERED: propofoL 200 MG/20 ML VIAL IV ONE (10:18)
[2024-04-07] MEDS ORDERED: FENTANYL CITR 100 MCG/2 ML ONE (10:18)
[2024-04-07] MEDS ORDERED: MIDAZOLAM HCL 2 MG/2 ML INJ ONE (10:18)
[2024-04-07] MEDS: SUCCINYLCHOLINE 20 MG/ML (10 ML) IV ONE (10:20)
[2024-04-07] MEDS: LIDOCAINE HCL/EPINEPHRINE 20 ML MDV ONE (10:42)
--- NOTE | 2024-04-07 10:48 | CON ---
Date of Consultation: 04/07/2024 Brief History Of Present Illness: The patient is a 33-year-old male with past medical history of hyp ertension, appendectomy, sleeve gastrectomy, who presented to the emergency department with an onset of right upper quadrant abdominal pain, nausea, vomiting at 3 a.m. this morning. He had episodes bef ore in the past multiple times. He tried to change his diet, but was unsuccessful at that time. He ultimately had worsening of his symptoms and continues to have some soreness in the right upper quadr ant. As such, he came to the emergency room with the above-stated complaints. Past Medical History: Significant for asthma, hypertension. Past Surgical History: Includes appendectomy, sleeve gastrectomy 1 year ago. Home Medications: He took Cipro, hydrocodone in the past, but nothing currently. Allergies: NO KNOWN DRUG ALLERGIES. Family History: Significant for diabetes in both his father and mother. Social History: He denies smoking. Drinks alcohol socially. Denies recreational drug use. He live s at home with his . Review of Systems: Ten-point review of systems other than HPI, he had nausea, vomiting, abdominal pain as described. Ot herwise, 10-point review of systems negative. Physical Examination: Vital Signs: At the time of my examination, blood pressure 118/81, pulse 65, respiratory rate 20, pu lse ox 100% on room air. General: He is awake, alert, oriented. Psychiatric: Appropriate. Conversive. HEENT: Normocephalic. Sclerae icteric. Mucous membranes are moist. Oropharynx clear. Neck: Supple. No JVD. Chest: Normal expansion and excursion. Cardiovascular: Regular rate and rhythm. Pulmonary: Clear to auscultation bilaterally. Abdomen: Soft with positive right upper quadrant tenderness to palpation. Positive Nicolas sign. Ot herwise, well-healed surgical scars were evident. No additional findings. Extremities: No clubbing, cyanosis, edema. Skin: Warm and dry. Laboratory Data: Reveals white blood cell count 8.5, hemoglobin 13.8, hematocrit of 41.1, platelet c ount is 280, neutrophils are 47%. Sodium 142, potassium 3.3, chloride 108, carbon dioxide is 30, BUN 11, creatinine 0.98, glucose is 119, calcium 9.2, total bilirubin 0.2, AST 17, ALT 26, alkaline phos phatase 80, lipase 46. UA is essentially negative. He had imaging performed, which included a CT ab domen and pelvis which is officially read as moderate distention of gallbladder with wall thickening, can be seen in setting of acute cholecystitis. Recommend ultrasound for further evaluation of right -sided nephrolithiasis. No hydronephrosis. Ultrasound performed showed cholelithiasis without evide nce of acute cholecystitis findings. Assessment And Plan: This is a 33-year-old male, who comes in with signs and symptoms of acute calcu lous cholecystitis. 1.IV fluid hydration. 2.Antibiotic coverage. 3.I explained risks, benefits, and alternatives of laparoscopic possible open cholecystectomy with i ndocyanine green cholangiography, possible contrast cholangiography and indicated procedures. The tran holland states he understands that the risks include, but are not limited to bleeding, infection, damag e to surrounding tissues, injury, intestines, bile duct, need for further operative procedures, heart attack, blood clot, strokes, and other unforeseen complications in the perioperative period. Additi onal procedure might be necessary in the future. The patient agreed to proceed as indicated. Thank you for this interesting consult. ABAD/LEOPOLDO Voice ID: [id number] Report ID: [id number]
[2024-04-07] MEDS ORDERED: GLYCOPYRROLATE 0.2 MG/ML SYR ONE (11:15)
[2024-04-07] MEDS ORDERED: NEOSTIGMINE 1 MG/ML -10 ML VIAL ONE (11:15)
--- NOTE | 2024-04-07 11:22 | P.OP ---
Preoperative diagnosis: Acute Calculous Cholecystitis Postoperative diagnosis: Acute Calculous Cholecystitis Primary procedure: Laparoscopic Cholecystectomy with ICG Anesthesia: GETA + Local Estimated blood loss: <5cc Specimen: Gallbladder Findings: Hydropic GB, short cystic duct, distended GB Complications: None Implants: Jessica Powder Transferred to: Recovery Room Condition: Good
--- NOTE | 2024-04-07 12:33 | OP ---
Date of Procedure: 04/07/2024 Surgeon: Duy Mccarty MD, Preoperative Diagnosis: Acute calculous cholecystitis. Postoperative Diagnosis: Acute calculous cholecystitis. Procedure Performed: Laparoscopic cholecystectomy with indocyanine green cholangiography. Anesthesia: General endotracheal plus local 1% lidocaine. Estimated Blood Loss: Less than 5 cc. Specimen: Gallbladder. Findings: 1.Hydropic gallbladder. 2.Short cystic duct. 3.Distended gallbladder. Complications: None. Implants: Jessica hemostatic powder. Disposition: The patient was transferred to recovery room in good condition. Procedure In Detail: After informed consent was obtained, the patient was brought to the operating r oom, prepped and draped in the usual sterile fashion. After adequate anesthesia was achieved, I anes thetized the area in supraumbilical position down to subcutaneous tissues. A 5-mm 0-degree optical t rocar was introduced in the abdomen without incident or complication. Insufflation was obtained to 1 5 mmHg at this time. There were no injury to vital structures upon entering the abdomen. Two additi onal trocars were placed, one in the epigastrium and one in the right upper quadrant. Both of these were similarly anesthetized and sharply incised. A 5 mm trocar was placed under direct visualization without incident or complication in the umbilical trocar site as well as a 12 mm under direct visual ization without incident or complication. The patient was positioned head up right-side up position. Ratcheted graspers were used to grasp the patient's gallbladder, was found to be distended, and hyd ropic in appearance. I dissected down to the Pooja pouch of the gallbladder where hydropic fluid and significant inflammatory edematous changes were noted. I circumferentially dissected out 2 struc tures to identify both cystic duct and cystic artery. The critical view of safety was obtained at th is point. Indocyanine green cholangiography confirmed the confluence of the cystic duct and common d uct junction. I had sufficient distance from the presumed clips, double titanium clips were placed d oubly on the proximal side and singly on the distal side of both cystic duct and cystic artery. Thes e structures were then ligated between Endo Ryne. The gallbladder was removed from the hepatic fos sa without incident or complication, placed in an EndoCatch bag, removed through the umbilical trocar site, and sent off for pathologic examination. The area was copiously irrigated and the liver bed n ear the midportion and proximal area was fulgurated using electrocautery with good hemostasis. No si gnificant blood loss was appreciated throughout the procedure. I then irrigated the area once again, sprayed Jessica hemostatic powder matrix in the subhepatic space, and the patient was positioned back in neutral position. Remainder of effluent was suctioned out. The 12 mm trocar site was closed usi ng a Anastacio-Hermann suture passer with 0 Vicryl in interrupted fashion with good approximation of ti ssues. The abdomen was desufflated under direct visualization without incident or complication. Rem ainder of trocars were removed. All skin incisions were then copiously irrigated and closed with a 4 -0 Monocryl in a running fashion. Dermabond was placed over top. The patient tolerated the procedur e without incident or complication and transferred to PACU in good condition. All counts were correc t at the end of the case. ABAD/LEOPOLDO Voice ID: [id number] Report ID: [id number]
[2024-04-07] MEDS: HYDROCODONE/APAP 5/325 MG TAB PO PRN (14:00)
[2024-04-07] MEDS: Ringers Lactate 1,000 ML IV ONE (14:02)
[2024-04-07] MEDS: PIPER TAZO 3.375 GM in NA CHLORIDE 0.9% 100 ML IV SCH (16:43)
[2024-04-07] MEDS: HYDROMORPHONE HCL 1 MG/ML INJ IV ONE (20:51)
--- NOTE | 2024-04-07 21:30 | RAD REPORT ---
EXAMINATION: XR RIGHT SHOUDLER CLINICAL INDICATION: Male, 33 years old. pain RIGHT TECHNIQUE: Multiple views of the right shoulder were obtained. COMPARISON: No prior exam. FINDINGS: No bone or joint abnormality detected.
[2024-04-08 06:41] LABS: Albumin 3.7 g/dL (3.4-5.0); Anion Gap 11.1 mEq/L (5.0-15.0); Bilirubin Total 4.3 mg/dL (0.2-1.0); Globulin 3.8 g/dL (2.3-3.5); Protein, Total 7.5 g/dL (6.4-8.2)
[2024-04-08 06:48] LABS: Potassium 4.1 mEq/L (3.5-5.1)
[2024-04-08 07:07] LABS: Absolute Lymphocytes (CBC) 0.9 K/uL (0.7-4.9); Absolute Monocytes 0.8 K/uL (0.1-1.3); Absolute Neutrophil 6.8 K/uL (1.8-8.0); Basophils % 0.3 % (0-1.3); Eosinophils % 0.3 % (0-4.4); Hematocrit 40.8 % (39.6-49.0); Hemoglobin 13.8 g/dL (13.6-17.9); Lymphocytes % 10.1 % (15.3-44.8); MCH 29.6 pg (27.0-35.0); MCHC 33.8 g/dL (32.0-36.0); MCV 87.4 fL (80-100); MPV 8.8 fL (7.6-11.3); Monocytes % 9.7 % (3.3-12.3); Neutrophils % 79.6 % (41.7-73.7); Nucleated Red Blood Cells % 0.1 % (0-0); Platelets 247 thou/uL (152-406); RBC Red Blood Cell Count 4.67 M/uL (4.33-5.43); Red Cell Distribution Width 14.4 % (12.1-15.2)
[2024-04-08] MEDS: AMLODIPINE 10 MG TAB PO SCH (08:23)
--- NOTE | 2024-04-08 08:32 | P.PN ---
Subjective Date of Service: 04/08/24 Chief Complaint: Acute cholecystitis Subjective: Improving (Pt had severe right upper quad/shoulder pain last pm. Feeling better this am) Review of Systems 10-point ROS is otherwise unremarkable General: As per HPI Eyes: Unremarkable ENT: Unremarkable Respiratory: Unremarkable Cardiovascular: Unremarkable Gastrointestinal: Abdominal Pain Genitourinary: Unremarkable Musculoskeletal: Shoulder Pain Integumentary: Unremarkable Neurological: Unremarkable Lymphatics: Unremarkable Physical Examination - Vital Signs Temperature: 98.3 F Blood Pressure: 139/78 Pulse: 57 Respirations: 18 Pulse Ox (%): 96 - Physical Exam General: Alert, In no apparent distress, Oriented x3 HEENT: Atraumatic, Normocephalic Neck: Supple Respiratory: Normal air movement Cardiovascular: Normal pulses, Regular rate/rhythm Capillary refill: <2 Seconds Gastrointestinal: Soft and benign, Other (stella dry and intact, no dressing) Musculoskeletal: No clubbing Integumentary: No rashes Neurological: Normal speech, Normal tone, Normal affect Lymphatics: No axilla or inguinal lymphadenopathy External genitalia: Deferred Rectal: Deferred Assessment And Plan - Plan Acute cholecystitis N.p.o. IVF Zosyn 3.375 g every 8 Pain control Nausea Consult Dr. Mccarty - done Turn cough and deep breathe acute to Incentive spirometer Teds Hypertension Restart amlodipine 10 mg p.o. daily tomorrow 04/08/24 Pt doing well clinically was to discharge today but am labs with significant transaminitis will await reassessment per Dr. Mccarty Simethkarolyn, advance diet to clear liquid recheck LFT's at 1600 VTE/GI prophylaxis Discharge Plan: Home Plan to discharge in: 24 Hours (will need to change to inpatient if LFT's do not improve) - Code Status/Comfort Care Code Status Assessed: Yes (Full) Time Spent Managing PTS Care (In Minutes): 25
[2024-04-08] MEDS: PROMETHAZINE INJ 25 MG/ML AMP IV PRN (08:36)
[2024-04-08 10:56] LABS: Albumin 3.1 g/dL (3.4-5.0); Albumin/Globulin Ratio 0.9 (1.1-1.8); Bilirubin Direct 3.2 mg/dL (0-0.2); Bilirubin Indirect, Calculated 0.9 mg/dL (0.2-0.8); Bilirubin Total 4.1 mg/dL (0.2-1.0); Globulin 3.3 g/dL (2.3-3.5); Protein, Total 6.4 g/dL (6.4-8.2)
[2024-04-08 11:46] VITALS: BMI 32.8
--- NOTE | 2024-04-08 11:56 | RAD REPORT ---
EXAMINATION: Abdomen W/Wo Contrast CLINICAL INDICATION: Abdominal pain TECHNIQUE: Computed axial tomography obtained from the diaphragm to the iliac crest. Unenhanced and e nhanced images obtained. 100 cc Isovue-300 administered intravenously. Oral contrast not requested which limits evaluation of the bowel COMPARISON: April 07, 2024 CT. FINDINGS: Post surgical changes of a cholecystectomy. Small amount of pneumoperitoneum. The pancreas is mildly edematous with stranding in the adjacent fat. Small amount of fluid is present within the left and right anterior para renal spaces. Surgical clips are present within the right upper quadrant. The clip does not appear to be placed wit hin the common hepatic/bile duct. The biliary tree does not appear to be dilated. Small amount of fluid is present within the gallbladder fossa with a couple of air bubbles. The spleen, adrenals and kidneys appear unremarkable Post surgical changes involving the stomach. Areas of atelectasis within the lung bases. No bowel obstruction. IMPRESSION: Edematous pancreas with stranding in the peripancreatic fat and small amount of fluid within the left and right pararenal spaces consistent with pancreatitis. Postsurgical changes a cholecystectomy without visualization of a biliary obstruction. Given the sign ificant abnormal enzymes it is recommended that patient have an MRCP for further evaluation
[2024-04-08] MEDS: SIMETHICONE 125 MG TAB PO PRN (11:59)
--- NOTE | 2024-04-08 12:00 | RAD REPORT ---
EXAM: Right upper quadrant ultrasound. CLINICAL HISTORY: COMPARISON: April 07, 2024. FINDINGS: Cholecystectomy. Evaluation of the gallbladder fossa and extrahepatic biliary tree suboptimal secondary to air within adjacent bowel. Biliary tree normal caliber IMPRESSION: Cholecystectomy. Biliary tree normal caliber
[2024-04-08 16:21] LABS: Albumin 3.4 g/dL (3.4-5.0); Bilirubin Direct 1.3 mg/dL (0-0.2); Bilirubin Indirect, Calculated 0.8 mg/dL (0.2-0.8); Bilirubin Total 2.1 mg/dL (0.2-1.0); Globulin 3.3 g/dL (2.3-3.5); Protein, Total 6.7 g/dL (6.4-8.2)
[2024-04-09 06:07] LABS: Absolute Eosinophils 0.1 K/uL (0-0.5); Absolute Lymphocytes (CBC) 1.6 K/uL (0.7-4.9); Absolute Neutrophil 6.3 K/uL (1.8-8.0); Basophils % 0.4 % (0-1.3); Eosinophils % 0.9 % (0-4.4); Hematocrit 38.1 % (39.6-49.0); Hemoglobin 13.1 g/dL (13.6-17.9); Lymphocytes % 17.5 % (15.3-44.8); MCH 30.3 pg (27.0-35.0); MCHC 34.4 g/dL (32.0-36.0); MCV 88.2 fL (80-100); MPV 8.7 fL (7.6-11.3); Monocytes % 10.8 % (3.3-12.3); Neutrophils % 70.4 % (41.7-73.7); Platelets 225 thou/uL (152-406); RBC Red Blood Cell Count 4.32 M/uL (4.33-5.43); Red Cell Distribution Width 14.2 % (12.1-15.2)
[2024-04-09 06:36] LABS: Albumin 3.1 g/dL (3.4-5.0); Anion Gap 8.5 mEq/L (5.0-15.0); Globulin 3.2 g/dL (2.3-3.5); Potassium 3.5 mEq/L (3.5-5.1); Protein, Total 6.3 g/dL (6.4-8.2)
--- NOTE | 2024-04-09 10:07 | RAD REPORT ---
EXAMINATION: MR CHOLANGIOGRAM CLINICAL INDICATION: Male, 33 years old. elevated bilirubin after cholecystectomy TECHNIQUE: Multiplanar, multisequence MR imaging of the abdomen without intravenous contrast, and wit h specific attention to the biliary system. Unless otherwise specified, incidental findings do not require dedicated imaging follow-up. 3D MIP reconstruction performed. COMPARISON: 04/08/2024 FINDINGS: GALLBLADDER: Surgically absent. BILE DUCTS: There is a 5 mm segment of the proximal common bile duct/common hepatic duct which shows a lack signal. There is mild dilatation of the common hepatic duct proximal to this. Distal common bile duct is normal caliber. LIVER: Normal in size, contour, and signal without evidence of fatty infiltration or iron deposition. No focal lesion. PANCREAS: Mild edematous appearance of the pancreas. LYMPH NODES: No lymphadenopathy. ADDITIONAL FINDINGS: None. IMPRESSION: Proximal common bile duct/common hepatic duct demonstrates 4-5 mm segment of signal loss on MRCP. Thi s may be attributable to focal narrowing/edema or debris/retained stone. The proximal common hepatic duct appears mildly prominent. ERCP would be suggested for further evaluation of this finding . Mild edematous appearance to the pancreas suggests mild pancreatitis.
[2024-04-10 06:09] LABS: Absolute Eosinophils 0.2 K/uL (0-0.5); Absolute Lymphocytes (CBC) 1.4 K/uL (0.7-4.9); Absolute Monocytes 1.1 K/uL (0.1-1.3); Absolute Neutrophil 7.2 K/uL (1.8-8.0); Basophils % 0.5 % (0-1.3); Eosinophils % 2.1 % (0-4.4); Hematocrit 38.4 % (39.6-49.0); Hemoglobin 13.1 g/dL (13.6-17.9); Lymphocytes % 13.9 % (15.3-44.8); MCH 29.9 pg (27.0-35.0); MCHC 34.1 g/dL (32.0-36.0); MCV 87.8 fL (80-100); MPV 8.6 fL (7.6-11.3); Monocytes % 10.8 % (3.3-12.3); Neutrophils % 72.7 % (41.7-73.7); Nucleated Red Blood Cells % 0.2 % (0-0); Platelets 243 thou/uL (152-406); RBC Red Blood Cell Count 4.37 M/uL (4.33-5.43); Red Cell Distribution Width 14.3 % (12.1-15.2)
[2024-04-10 06:23] LABS: Albumin 2.9 g/dL (3.4-5.0); Albumin/Globulin Ratio 0.8 (1.1-1.8); Anion Gap 8.5 mEq/L (5.0-15.0); Bilirubin Total 0.8 mg/dL (0.2-1.0); Globulin 3.7 g/dL (2.3-3.5); Potassium 3.5 mEq/L (3.5-5.1); Protein, Total 6.6 g/dL (6.4-8.2)
[2024-04-10] MEDS: POTASSIUM 25 MEQ EFFERV TAB PO ONE (09:33)
[2024-04-10 10:37] VITALS: O2SAT 97
[2024-04-10 12:35] VITALS: BP 134/79; TEMP 98.1
--- NOTE | 2024-04-10 15:02 | P.PN ---
Subjective Date of Service: 04/09/24 Patient clinically doing well with no new complaints. Review of Systems 10-point ROS is otherwise unremarkable Physical Examination - Vital Signs Temperature: 98.1 F Blood Pressure: 134/79 Pulse: 71 Respirations: 20 Pulse Ox (%): 99 - Physical Exam General: Alert, In no apparent distress, Oriented x3 Respiratory: Clear to auscultation bilaterally, Normal air movement Cardiovascular: Regular rate/rhythm, Normal S1 S2 Gastrointestinal: Normal bowel sounds, Soft and benign, Non-distended, No tenderness Musculoskeletal: No clubbing, No swelling, No tenderness Neurological: Sensation intact, Cranial nerves 3-12 intact - Studies Medications List Reviewed: Yes Assessment & Plan - Problems (Diagnosis) (1) Acute cholecystitis Current Visit: Yes Status: Acute (2) S/P laparoscopic cholecystectomy Current Visit: Yes Status: Acute (3) Acute pancreatitis Current Visit: Yes Status: Acute - Plan Plan: 1. Continue with IV fluids 2. Clear liquid diet 3. MRCP reviewed; bilirubin trending downward 4. Out of bed and ambulate 5. Pain control 6. Discharge in a.m. if labs stable Discharge Plan: Home Plan to discharge in: Greater than 2 days - Advance Directives Does patient have a Living Will: No Does patient have a Durable POA for Healthcare: No - Code Status/Comfort Care Code Status Assessed: Yes Code Status: Full Code Critical Care: No Time Spent Managing PTS Care (In Minutes): 35
--- NOTE | 2024-04-10 15:03 | P.DS ---
Discharge Date: 04/10/24 Disposition: ROUTINE DISCHARGE Discharge Condition: GOOD Reason for Admission: Acute cholecystitis - Problems (1) Acute cholecystitis Current Visit: Yes Status: Acute (2) S/P laparoscopic cholecystectomy Current Visit: Yes Status: Acute (3) Acute pancreatitis Current Visit: Yes Status: Acute Brief History of Present Illness: Mr. Stephens is a 33-year-old male with a past medical history of hypertension, appendectomy, and gastric sleeve who presented to the emergency department after sudden onset of right upper quadrant abdominal pain, nausea, and vomiting at 0300 this morning. Mr. Stephens has had episodes of the same pain in the past year but has tried to change his diet to forego surgery. In the emergency department he was given IV fluids, pain medication, nausea medication, and antibiotics and Dr. Mccarty was consulted. Patient was taken to the operating room for laparoscopic cholecystectomy. Hospital Course: Patient is a 33-year-old gentleman came to the hospital with acute cholecystitis. Patient with laparoscopic cholecystectomy. Patient clinically doing well. Patient has some elevation in his lipase but this was most likely from stone passing as MRCP did not reveal any substantial abnormality and his total bilirubin and lipase have normalized. Patient clinically doing well and stable for discharge with outpatient follow-up with general surgery in 1 week. Discharge on Augmentin for antibiotic coverage and pain medication. Vital Signs/Physical Exam: Temp Pulse Resp BP Pulse Ox 98.1 F 71 20 134/79 99 04/10/24 15:01 04/10/24 15:01 04/10/24 15:01 04/10/24 15:01 04/10/24 15:01 General: Alert, In no apparent distress, Oriented x3 Laboratory Data at Discharge: WBC 9.90 thou/uL (4.3-10.9) 04/10/24 05:48 Hgb 13.1 g/dL (13.6-17.9) L 04/10/24 05:48 Hct 38.4 % (39.6-49.0) L 04/10/24 05:48 Plt Count 243 thou/uL (152-406) 04/10/24 05:48 Sodium 141 mEq/L (136-145) 04/10/24 05:48 Potassium 3.5 mEq/L (3.5-5.1) 04/10/24 05:48 BUN 6 mg/dL (7-18) L 04/10/24 05:48 Creatinine 0.75 mg/dL (0.70-1.30) 04/10/24 05:48 Glucose 86 mg/dL (74-106) 04/10/24 05:48 Magnesium 2.0 mg/dL (1.6-2.4) 04/08/24 06:10 Total Bilirubin 0.8 mg/dL (0.2-1.0) 04/10/24 05:48 AST 41 U/L (15-37) H 04/10/24 05:48 ALT 179 U/L (16-61) H 04/10/24 05:48 Alkaline Phosphatase 121 U/L (45-117) H 04/10/24 05:48 Triglycerides 90 mg/dL (<150) 04/08/24 06:10 Cholesterol 136 mg/dL (<200) 04/08/24 06:10 HDL Cholesterol 45 mg/dL (40-60) 04/08/24 06:10 Cholesterol/HDL Ratio 3.02 04/08/24 06:10 Lipase 153 U/L (13-75) H 04/10/24 05:48 Home Medications: Amlodipine [Norvasc*] 10 mg PO DAILY PRN 04/07/24 Amox/Clavulanate [Augmentin 875-125 Tab] 875 mg PO BID #14 tab 04/10/24 Hydrocodone 5/APAP 325 [[place] 5/325*] 1 tab PO Q6H PRN #20 tab 04/10/24 New Medications: Amox/Clavulanate [Augmentin 875-125 Tab] 875 mg PO BID #14 tab Hydrocodone 5/APAP 325 [[place] 5/325*] 1 tab PO Q6H PRN #20 tab PRN Reason: Pain Scale 5-7 (Moderate) Physician Discharge Instructions: -DC IV and DC home -Follow-up with PCP in 1 to 2 weeks -Follow-up with Surgery in 1 to 2 weeks -Please call Dr. Holguni at [phone] if any questions regarding hospital stay -Please call nursing station at [phone] if any nursing or medication questions -Return to the emergency room if symptoms worsen Diet: low fat Activity: No lifting more than 10 lbs Followup: Duy Mccarty MD [ACTIVE - CAN ADMIT] - Son Garcia MD [Primary Care Provider] - Time spent managing pt's care (in minutes): 35
== END 2024-04-10 15:59 | disposition home or self-care (01) | DRG 419 ==
LOC: ER 04:29 → 4TH 08:36 → OBSVTOIN 04-08 10:27
PROVIDERS: ADMIT Internal Medicine Sleep Medicine; ATTEND Hospitalist
PROC: BF52200 Other Imaging of Gallbladder using Fluorescing Agent, Indocyanine Green Dye, Intraoperative (ICD-10-PCS; 2024-04-07)
PROC: 0FT44ZZ Resection of Gallbladder, Percutaneous Endoscopic Approach (ICD-10-PCS; principal; 2024-04-07 10:30)
DX: K80.00 Calculus of gallbladder with acute cholecystitis without obstruction (principal); I10 Essential (primary) hypertension; R74.01 Elevation of levels of liver transaminase levels; Z90.3 Acquired absence of stomach [part of]; Z90.49 Acquired absence of other specified parts of digestive tract; Z79.899 Other long term (current) drug therapy
CPT/HCPCS: 36415; 74170; 74177; 74181; 76705; 80053; 80061; 80076; 81003; 83690; 83735; 85025; 88304; 94010; 96361; 96365; 96375; 99285; G0378; J1170; J2250; J2270; J2405; J2470; J2543; J2550; J2704; J2710; J3010; J7030; J7120; Q9967

== ENCOUNTER 2024-08-11 20:18 | Emergency (ER) | payer SELFPAY ==
[2024-08-11] MEDS ORDERED: HYDROCODONE/APAP 7.5/325 MG TAB ONE (21:19)
--- NOTE | 2024-08-11 21:57 | RAD REPORT ---
EXAMINATION: XR LEFT TIBIA AND FIBULA CLINICAL INDICATION: . PAIN TECHNIQUE:Two view radiograph of the left tibia and fibula were obtained. COMPARISON: No prior exam. FINDINGS: No bone or joint abnormality detected. Small calcaneal spurs.
--- NOTE | 2024-08-11 21:57 | RAD REPORT ---
EXAMINATION: XR LEFT FEMUR CLINICAL INDICATION: . PAIN TECHNIQUE: Multiple views of the left femur were obtained. COMPARISON: No prior exam. FINDINGS: No bone or joint abnormality detected.
--- NOTE | 2024-08-11 21:57 | RAD REPORT ---
EXAMINATION: XR RIGHT WRIST CLINICAL INDICATION: PAIN RIGHT TECHNIQUE: Multiple projections of the right wrist were obtained. COMPARISON: No prior exam. FINDINGS: No bone or joint abnormality seen.
--- NOTE | 2024-08-11 21:58 | RAD REPORT ---
EXAMINATION: XR LEFT FOOT CLINICAL INDICATION: PAIN TECHNIQUE: Multiple projections of the left foot were obtained. COMPARISON: No prior exam. FINDINGS: No bone or joint abnormality seen. Small calcaneal spurs.
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
[2024-08-11] MEDS ORDERED: TDAP (DIPHTH,PERTUSS(ACELL),TET VAC) 0.5 ML VIAL IMVAC ONE (22:26)
[2024-08-11] MEDS ORDERED: CEPHALEXIN 250 MG CAP ONE (22:26)
[2024-08-11 22:38] VITALS: TEMP 98
[2024-08-11 22:40] VITALS: BP 147/89; O2SAT 100
== END 2024-08-11 22:33 | disposition home or self-care (01) ==
LOC: ER 20:18
DX: S80.812A Abrasion, left lower leg, initial encounter (principal); S20.412A Abrasion of left back wall of thorax, initial encounter; M25.531 Pain in right wrist; V86.55XA Driver of 3- or 4- wheeled all-terrain vehicle (ATV) injured in nontraffic accident, initial encounter
CPT/HCPCS: 96372; 99284